=== PATIENT | male | born 1935 | race Two or more races ===

== ENCOUNTER 2020-01-28 22:51 | Inpatient (IN) | payer OTHER ==
[~2020-01-28] VITALS: Ht 177.8 cm; Wt 70.3 kg
--- NOTE | 2020-01-28 22:54 | NUR ---
dr shultz at [facility] side
--- NOTE | 2020-01-28 22:55 | NUR ---
PATIENT CAME TO THE ER BED 2 BIBRA FROM HOME FOR VOMITING AND NAUSEA W/ COFFEE GROUND EMESIS PER DAUGHTER FOR 1x DAY. PATIENT IS AAOX2. BREATHING EVENLY AND UNLABORED ON ROOM AIR AT OXYGEN SATURATION OF 100%. CONNECTED TO THE STUDENT FINANCIAL SERVICES COUNSELOR.
[2020-01-28] MEDS ORDERED: IV NS 0.9% 1,000 ML BAG IV ONE (23:00)
[2020-01-28] MEDS ORDERED: PANTOPRAZOLE 40 MG VIAL IV ONE (23:00)
[2020-01-28] MEDS ORDERED: ONDANSETRON HCL/PF 4 MG/2 ML VIAL IVP ONE (23:00)
[2020-01-28] MEDS ORDERED: ONDANSETRON HCL/PF 4 MG/2 ML VIAL ONE (23:02)
--- NOTE | 2020-01-28 23:10 | NUR ---
BLOOD, COVID SWAB ANTIGEN, CULTURES ARE COLLECTED AND SENT TO THE LAB.
[2020-01-28] MEDS ORDERED: PANTOPRAZOLE 40 MG VIAL ONE (23:15)
[2020-01-28 23:28] LABS: BASOPHILS % (AUTO) 0.1 % (0.0-2.0); EOSINOPHILS % (AUTO) 0.2 % (0.0-6.0); LYMPHOCYTES # (AUTO) 0.6 /CMM (0.8-4.8); LYMPHOCYTES % (AUTO) 7.5 % (20.0-44.0); MEAN CORPUSCULAR HGB CONC 31 g/dl (31.0-36.0); MEAN CORPUSCULAR VOLUME 95 fL (80-96); MONOCYTES # (AUTO) 0.4 /CMM (0.1-1.30); MONOCYTES % (AUTO) 4.8 % (2.0-12.0); NEUTROPHILS # (AUTO) 6.8 /CMM (1.8-8.9); NEUTROPHILS % (AUTO) 87.4 % (43.0-81.0); PLATELET COUNT (AUTO) 214 /CMM (150-450); WHITE BLOOD COUNT (AUTO) 7.7 K/uL (4.3-11.0)
[2020-01-28 23:29] LABS: HEMATOCRIT 11 % (39-51); HEMOGLOBIN 3.3 g/dL (13.5-17.5)
--- NOTE | 2020-01-28 23:29 | NUR ---
PATIENT IS TAKEN TO CT.
--- NOTE | 2020-01-28 23:29 | NUR ---
SPOKE WITH FAMILY MEMBER, DAUGHTER REGARDING PATIENT. FAMILY MEMBER GIVES CONSENT FOR BLOOD TRANSFUSION.
[2020-01-28 23:37] LABS: SERUM AMMONIA 25 umol/L (11-32)
[2020-01-28 23:40] LABS: BILIRUBIN,DIRECT 0.2 mg/dL (0.0-0.2); BILIRUBIN,TOTAL 0.4 mg/dL (0.2-1.0); CREATININE 0.9 mg/dL (0.6-1.3); TOTAL PROTEIN, SERUM 2.5 g/dL (6.4-8.2)
[2020-01-28 23:49] LABS: POTASSIUM 2.6 mmol/L (3.5-5.1)
[2020-01-28 23:50] LABS: ALBUMIN 0.7 g/dL (3.4-5.0)
[2020-01-28 23:56] LABS: ALCOHOL, BLOOD < 3 mg/dL (0-0)
[2020-01-29] MEDS ORDERED: POTASSIUM CHLORIDE 10 MEQ/50 ML PREMIXED IVPB FOR PERIPHERAL LINE IV ONE
[2020-01-29] MEDS ORDERED: POTASSIUM CL. PREMIX PERIPHER. 50 ML ONE ×4 (00:07→04:35)
[2020-01-29 00:09] LABS: BILIRUBIN,URINE Negative (NEGATIVE); COLOR,URINE YELLOW (YELLOW); LEUKOCYTE ESTERASE ,URINE Negative (NEGATIVE); NITRITE, URINE Negative (NEGATIVE); PROTEIN,URINE Negative (NEGATIVE); UGLUCOSE Negative (NEGATIVE); UROBILINOGEN,URINE 0.2 EU/dL (0.2)
--- NOTE | 2020-01-29 00:18 | NUR ---
KAPLAN PAGED PER DR OTTO.
[2020-01-29 00:20] LABS: ACETAMINOPHEN 16 ug/ml (10-30)
[2020-01-29 00:29] LABS: BACTERIA,URINE None seen /HPF (None Seen); RBC,URINE 0-2 /HPF (0-2); SQUAMOUS EPITHELIAL CELL,UR Rare /HPF (None Seen); URINE AMORPHOUS URATE Few /HPF (None Seen); WBC,URINE 0-2 /HPF (0-3)
--- NOTE | 2020-01-29 00:33 | NUR ---
SARAHI BECK, HOSPITALIST AT BED SIDE
[2020-01-29 00:34] LABS: LYMPHOCYTES % (MANUAL) 10 % (16-48); MONOCYTES % (MANUAL) 5 % (0-11.0); NEUTROPHILS % (MANUAL) 85 (42-76)
--- NOTE | 2020-01-29 00:35 | NUR ---
DR STINSON PAGED PER DR OTTO.
[2020-01-29] MEDS ORDERED: ALBUMIN 25% 12.5 GM/50 ML BOTTLE IV ONE (01:00)
[2020-01-29] MEDS ORDERED: NOREPINEPHRINE 8 MG in IV NS 0.9% 250 ML IV PRN (01:00)
[2020-01-29] MEDS ORDERED: PANTOPRAZOLE 40 MG VIAL IV SCH ×2 (01:00→09:00)
[2020-01-29] MEDS ORDERED: PANTOPRAZOLE 40 MG VIAL ONE ×3 (01:09→18:04)
[2020-01-29] MEDS ORDERED: ALBUMIN 25% 50 ML IV ONE ×2 (01:09→01:11)
[2020-01-29 01:15] VITALS: BP 82/34
[2020-01-29] MEDS: IV NS 0.9% 1,000 ML IV PRN (01:16)
--- NOTE | 2020-01-29 01:16 | NUR ---
STARTED BLOOD TRANSFUSION.
--- NOTE | 2020-01-29 03:06 | NUR ---
1ST BLOOD TRANSFUSION FINISHED. PATIENT TOLERATED WELL. NO BLOOD TRANSFUSION REACTION NOTED.
--- NOTE | 2020-01-29 03:09 | NUR ---
CALLED LAB FOR CLS TO PROVIDE 2ND PRBC FOR PATIENT. CLS IS CURRENTLY ON BREAK. WILL CALL ME BACK PER LAB STAFF.
--- NOTE | 2020-01-29 03:45 | NUR ---
PER CLS GIVE 15 MORE MINUTES AND THE BLOOD WILL BE READY. WILL CALL BACK.
--- NOTE | 2020-01-29 06:28 | NUR ---
2ND BLOOD TRANSFUSION FINISHED. PATIENT TOLERATED WELL. 124/75 BP 90 HR. NO BLOOD TRANSFUSION REACTION NOTED.
[2020-01-29 07:17] LABS: BASOPHILS % (AUTO) 0.1 % (0.0-2.0); EOSINOPHILS % (AUTO) 0.1 % (0.0-6.0); LYMPHOCYTES # (AUTO) 0.9 /CMM (0.8-4.8); LYMPHOCYTES % (AUTO) 10.4 % (20.0-44.0); MEAN CORPUSCULAR HGB CONC 32 g/dl (31.0-36.0); MEAN CORPUSCULAR VOLUME 95 fL (80-96); MONOCYTES # (AUTO) 0.4 /CMM (0.1-1.30); MONOCYTES % (AUTO) 4.6 % (2.0-12.0); NEUTROPHILS % (AUTO) 84.8 % (43.0-81.0); PLATELET COUNT (AUTO) 130 /CMM (150-450); WHITE BLOOD COUNT (AUTO) 8.2 K/uL (4.3-11.0)
[2020-01-29 07:20] LABS: RED BLOOD CELL COUNT(AUTO) 1.36 MIL/uL (4.5-6.0)
[2020-01-29 07:22] LABS: HEMATOCRIT 13 % (39-51); HEMOGLOBIN 4.1 g/dL (13.5-17.5)
[2020-01-29 07:30] LABS: ALANINE AMINOTRANSFERASE 16 U/L (12-78); ALKALINE PHOSPHATASE 29 U/L (46-116); ASPARTATE AMINOTRANSFERASE 17 U/L (15-37); BILIRUBIN,TOTAL 0.4 mg/dL (0.2-1.0); CHLORIDE 124 mmol/L (98-107); CREATININE 0.7 mg/dL (0.6-1.3); GLUCOSE 109 mg/dL (74-106); SODIUM SERUM 150 mmol/L (136-145); TOTAL PROTEIN, SERUM 2.1 g/dL (6.4-8.2); UREA NITROGEN, BLOOD 43 mg/dL (7-18)
[2020-01-29 07:31] LABS: IRON, SERUM 43 ug/dl (50-175); TOTAL IRON BINDING CAPACITY 82 ug/dl (250-450)
[2020-01-29 07:43] LABS: CALCIUM, SERUM 3.8 mg/dL (8.5-10.1); CARBON DIOXIDE 8 mmol/L (21-32); POTASSIUM 2.3 mmol/L (3.5-5.1)
[2020-01-29 07:46] LABS: ALBUMIN 0.8 g/dL (3.4-5.0); MAGNESIUM 0.7 mg/dL (1.8-2.4); PHOSPHORUS 0.8 mg/dL (2.5-4.9)
[2020-01-29 07:50] LABS: FERRITIN 208 ng/mL (8-388); LDL 8 mg/dL (0-99); THYROID STIMULATING HORMONE 1.033 uIU/mL (0.358-3.74); TRIGLYCERIDES 40 mg/dL (30-150)
[2020-01-29 08:03] LABS: CHOLESTEROL 18 mg/dL (<200)
--- NOTE | 2020-01-29 08:03 | NUR ---
PT IN BED SLEEPING.
[2020-01-29 08:04] LABS: HDL CHOLESTEROL < 10 mg/dL (40-60)
[2020-01-29] MEDS ORDERED: ATOR80TA PO (08:36)
[2020-01-29] MEDS ORDERED: AMIO200T5 PO (08:36)
[2020-01-29] MEDS ORDERED: TICA90TA PO (08:36)
[2020-01-29] MEDS ORDERED: METO25TA20 PO (08:36)
[2020-01-29] MEDS: PANTOPRAZOLE 40 MG VIAL IV SCH ×2 (09:35→18:00)
[2020-01-29] MEDS: Magnesium 1GM/D5W 100ML PREMIX 100 ML IV SCH ×4 (10:00→13:07)
[2020-01-29] MEDS: POTASSIUM PHOSPHATE MM 7.5 MMOL in IV NS 0.9% 100 ML IV SCH ×2 (10:00→14:07)
[2020-01-29] MEDS: Calcium Gluconate 1GM/10ML 9.3 MEQ in IV D5W 250 ML IV SCH ×2 (10:00→18:19)
--- NOTE | 2020-01-29 11:40 | NUR ---
3RD BAG OF PRBC STARTED PER MD STANDING ORDER HGB: 4.1.
--- NOTE | 2020-01-29 13:15 | NUR ---
3RD BAG PRBC COMPLETED. NO S/S/ OF ASE NOTED.
--- NOTE | 2020-01-29 13:36 | NUR ---
4TH BAG OF PRBC STARTED PER MD ORDERED. HGB= 4.1 VERIFIED BY SYEDA RAY
--- NOTE | 2020-01-29 14:31 | NUR ---
CARMINA LLANES NP AT BEDSIDE
[2020-01-29] MEDS ORDERED: PHYTONADIONE INJ 10 MG in IV D5W 50 ML SQ ONE (15:30)
--- NOTE | 2020-01-29 15:35 | NUR ---
4TH BAG PRBC COMPLETED. NO S/S OF ASE NOTED.
--- NOTE | 2020-01-29 15:40 | NUR ---
PHLEB AT BEDSIDE FOR BLOOD DRAW
[2020-01-29] MEDS ORDERED: PHYTONADIONE INJ 10 MG/1 ML AMPUL IV ONE (16:00)
--- NOTE | 2020-01-29 16:04 | NUR ---
SHARI PT'S DAUGTHER UPDATED REGARDING FATHER
[2020-01-29 16:11] LABS: BASOPHILS % (AUTO) 0.2 % (0.0-2.0); EOSINOPHILS % (AUTO) 0.5 % (0.0-6.0); HEMATOCRIT 26 % (39-51); HEMOGLOBIN 8.5 g/dL (13.5-17.5); LYMPHOCYTES # (AUTO) 1.1 /CMM (0.8-4.8); LYMPHOCYTES % (AUTO) 8.2 % (20.0-44.0); MEAN CORPUSCULAR HGB CONC 33 g/dl (31.0-36.0); MEAN CORPUSCULAR VOLUME 91 fL (80-96); MONOCYTES # (AUTO) 0.6 /CMM (0.1-1.30); MONOCYTES % (AUTO) 4.7 % (2.0-12.0); NEUTROPHILS # (AUTO) 11.9 /CMM (1.8-8.9); NEUTROPHILS % (AUTO) 86.4 % (43.0-81.0); PLATELET COUNT (AUTO) 181 /CMM (150-450); RED BLOOD CELL COUNT(AUTO) 2.86 MIL/uL (4.5-6.0); WHITE BLOOD COUNT (AUTO) 13.8 K/uL (4.3-11.0)
[2020-01-29 16:34] LABS: BILIRUBIN,TOTAL 0.8 mg/dL (0.2-1.0); MAGNESIUM 2.4 mg/dL (1.8-2.4)
[2020-01-29 17:16] LABS: CALCIUM, SERUM 7.5 mg/dL (8.5-10.1); CARBON DIOXIDE 18 mmol/L (21-32); CHLORIDE 106 mmol/L (98-107); CREATININE 1.7 mg/dL (0.6-1.3); GLUCOSE 298 mg/dL (74-106); POTASSIUM 4.8 mmol/L (3.5-5.1); SODIUM SERUM 135 mmol/L (136-145)
[2020-01-29 17:18] LABS: UREA NITROGEN, BLOOD 81 mg/dL (7-18)
[2020-01-29 17:21] LABS: PHOSPHORUS 2.5 mg/dL (2.5-4.9)
[2020-01-29 17:22] LABS: ALANINE AMINOTRANSFERASE 45 U/L (12-78); ALBUMIN 1.8 g/dL (3.4-5.0); ALKALINE PHOSPHATASE 68 U/L (46-116); ASPARTATE AMINOTRANSFERASE 49 U/L (15-37); TOTAL PROTEIN, SERUM 4.8 g/dL (6.4-8.2)
[2020-01-29] MEDS ORDERED: ZOSYN IVPB 3.375 G in IV D5W 50ml IV ONE (18:30)
[2020-01-29] MEDS ORDERED: PIPERACILLIN /TAZOBACTAM 3.375 G in IV D5W 100 ML IV ONE (18:30)
--- NOTE | 2020-01-29 19:30 | NUR ---
REC'D REPORT FROM AM SHIFT. PT HERE FOR GI BLEED. 4U PRBC INFUSED, 2 PLASMA PENDING. PT MORE AWAKE/ALERT, DENIES ANY PAIN/DISCOMFORT, DENIES SOB/CP, PT ON MONITOR. NO ACUTE EVENTS NOTED. PT VSS. WCTM
[2020-01-29 22:08] LABS: CALCIUM, SERUM 8.7 mg/dL (8.5-10.1); CARBON DIOXIDE 17 mmol/L (21-32); CHLORIDE 109 mmol/L (98-107); CREATININE 1.8 mg/dL (0.6-1.3); GLUCOSE 340 mg/dL (74-106); SODIUM SERUM 138 mmol/L (136-145); UREA NITROGEN, BLOOD 82 mg/dL (7-18)
[2020-01-29 22:25] LABS: BASOPHILS % (AUTO) 0.2 % (0.0-2.0); EOSINOPHILS % (AUTO) 0.5 % (0.0-6.0); HEMATOCRIT 28 % (39-51); HEMOGLOBIN 9.1 g/dL (13.5-17.5); LYMPHOCYTES # (AUTO) 1.1 /CMM (0.8-4.8); LYMPHOCYTES % (AUTO) 7.8 % (20.0-44.0); MEAN CORPUSCULAR HGB CONC 33 g/dl (31.0-36.0); MEAN CORPUSCULAR VOLUME 91 fL (80-96); MONOCYTES # (AUTO) 0.7 /CMM (0.1-1.30); MONOCYTES % (AUTO) 4.6 % (2.0-12.0); NEUTROPHILS # (AUTO) 12.4 /CMM (1.8-8.9); NEUTROPHILS % (AUTO) 86.9 % (43.0-81.0); PLATELET COUNT (AUTO) 221 /CMM (150-450); RED BLOOD CELL COUNT(AUTO) 3.07 MIL/uL (4.5-6.0); WHITE BLOOD COUNT (AUTO) 14.3 K/uL (4.3-11.0)
[2020-01-29] MEDS ORDERED: DEXTROSE 50%-WATER 50 ML DISP.SYRIN IV PRN (23:00)
[2020-01-30] VITALS (9 sets, daily range): BP systolic 98–121; BP diastolic 56–72
--- NOTE | 2020-01-30 | NUR ---
STARTED 1UNIT PLASMA @2300, VERIFIED WITH 2ND RN. Q15M VS RECORDED. NO ADVERSE REACTION NOTED. CONT TO MONITOR
[2020-01-30] MEDS: PIPERACILLIN /TAZOBACTAM 3.375 G in IV D5W 100 ML IV SCH ×3 (01:30→18:39)
[2020-01-30] MEDS: Calcium Gluconate 1GM/10ML 9.3 MEQ in IV D5W 250 ML IV SCH (02:54)
--- NOTE | 2020-01-30 03:00 | NUR ---
PT NOTED WITH BLACK STOOLS X1, REPORT TO ON-CALL HOSPITALIST, PT WITH SCHED EGD IN AM. PT VSS, NOT IN ANY DISTRESS.
[2020-01-30] MEDS: BLOOD SUGAR DIAGNOSTIC 1 EACH STRIP IN SCH ×5 (03:37→23:17)
--- NOTE | 2020-01-30 05:30 | NUR ---
2ND UNIT PLASMA STARTED, VERIFIED WITH 2ND RN. NO ADVERSE REACTION NOTED.
[2020-01-30 05:34] LABS: BASOPHILS % (AUTO) 0.2 % (0.0-2.0); EOSINOPHILS % (AUTO) 0.8 % (0.0-6.0); HEMATOCRIT 26 % (39-51); HEMOGLOBIN 8.7 g/dL (13.5-17.5); LYMPHOCYTES # (AUTO) 0.9 /CMM (0.8-4.8); LYMPHOCYTES % (AUTO) 6.4 % (20.0-44.0); MEAN CORPUSCULAR HGB CONC 34 g/dl (31.0-36.0); MEAN CORPUSCULAR VOLUME 90 fL (80-96); MONOCYTES # (AUTO) 0.6 /CMM (0.1-1.30); MONOCYTES % (AUTO) 4.5 % (2.0-12.0); NEUTROPHILS # (AUTO) 12.3 /CMM (1.8-8.9); NEUTROPHILS % (AUTO) 88.1 % (43.0-81.0); PLATELET COUNT (AUTO) 221 /CMM (150-450); RED BLOOD CELL COUNT(AUTO) 2.84 MIL/uL (4.5-6.0); WHITE BLOOD COUNT (AUTO) 13.9 K/uL (4.3-11.0)
[2020-01-30 06:16] LABS: ALANINE AMINOTRANSFERASE 51 U/L (12-78); ALBUMIN 2.1 g/dL (3.4-5.0); ALKALINE PHOSPHATASE 79 U/L (46-116); ASPARTATE AMINOTRANSFERASE 52 U/L (15-37); BILIRUBIN,TOTAL 0.7 mg/dL (0.2-1.0); CARBON DIOXIDE 17 mmol/L (21-32); CHLORIDE 108 mmol/L (98-107); CREATININE 1.7 mg/dL (0.6-1.3); MAGNESIUM 2.3 mg/dL (1.8-2.4); PHOSPHORUS 2.9 mg/dL (2.5-4.9); POTASSIUM 5.2 mmol/L (3.5-5.1); SODIUM SERUM 138 mmol/L (136-145); TOTAL PROTEIN, SERUM 5.2 g/dL (6.4-8.2); UREA NITROGEN, BLOOD 74 mg/dL (7-18)
[2020-01-30 06:17] LABS: GLUCOSE 354 mg/dL (74-106)
[2020-01-30] MEDS ORDERED: PANTOPRAZOLE 40 MG VIAL ONE (08:28)
--- NOTE | 2020-01-30 08:30 | NUR ---
kept npo. pt made aware of importance of being npo prior to egd
[2020-01-30] MEDS: PANTOPRAZOLE 40 MG VIAL IV SCH ×2 (08:31→22:05)
--- NOTE | 2020-01-30 09:04 | NUR ---
LAB CALLED WITH CRITICAL TROPONIN=1.03. PAGED EPIC
--- NOTE | 2020-01-30 10:47 | NUR ---
consent obtained for egd from daughter [place]. verified with [facility] sams
[2020-01-30] MEDS: IV NS 0.9% 1,000 ML IV PRN ×2 (10:57→17:44)
--- NOTE | 2020-01-30 11:44 | NUR ---
bs checked 305. pt kept npo for egd. bs sliding scale insulin held
[2020-01-30] MEDS ORDERED: ANESTHESIA TRAY IN PYXIS 1 EA TRAY MC ONE (11:48)
--- NOTE | 2020-01-30 12:00 | NUR ---
pt picked up by surgery for egd. rosalba rn by bedside
[2020-01-30] MEDS ORDERED: EPINEPHRINE (1:10,000) SYRINGE 1 MG/10 ML DISP.SYRIN ONE (13:06)
[2020-01-30] MEDS ORDERED: SUCCINYLCHOLINE CHLORIDE 20 MG/ML VIAL ONE (13:25)
[2020-01-30] MEDS ORDERED: ESMOLOL INJ 100 MG/10 ML VIAL IV ONE (14:05)
[2020-01-30] MEDS ORDERED: AMIODARONE 150 MG/3 ML VIAL IV ONE (14:22)
--- NOTE | 2020-01-30 16:54 | NUR ---
PROJECT ENGINEERING MANAGER ADMITTING NOTES PT ADMITTED TO UNIT AT 1555 VIA RLONGFORD ACCOMPANIED BY O.R. NURSE SAMEERA. PT S/P EGD, INJECTION 0F EPINEPHRINE AND ELECTROCOAGULATION. PT IS A/O X2-3. SYRIAN SPEAKING, DENIES PAIN OR ANY DISCOMFORTS AT THIS TIME. PT ORIENTED TO STAFF AND ROOM. PT ON 02 VIA N/C AT 2LPM, TOLERATING WELL WITH NO SOB NOTED. VS/ TAKEN AND RECORDED. PT PLACED ON TELEMONITORING WITH CURRENT READING OF NSR WITH HR ON THE 90'S, NO C/O CARDIAC DISTRESS VOICED. PT WITH PIV'S ON RAC G# 18 AND RIGHT WRIST G#20, BOTH INTACT AND PATENT. PER O.R RN SAMEERA, DR CAMARENA LEFT MESSAGE TO DR GUADARRAMA REGARDING PT'S ELEVATED TROPONIN LEVEL. PHOTOS OF SKIN ISSUES TAKEN AND FILED IN PT'S CHART. SAFETY MEASURES IMPLEMENTED: BED PLACED IN LOWEST LOCKED POSITION WITH SR UP X2. BED ALARM ON AND CALL LIGHT PLACED WITHIN EASY REACH OF PT. WILL CONTINUE TO MONITOR PT ACCORDINGLY.
[2020-01-30] MEDS: INSULIN REGULAR, HUMAN 100 UNIT/ML 3 ML VIAL SQ PRN (17:57)
--- NOTE | 2020-01-30 19:03 | NUR ---
PROFESSIONAL SKATEBOARDER CLOSING NOTES PT IN BED AWAKE AND RESTING AT MODERTAE HIGH BACKREST POSITION. A/O X4. GUATEMALAN SPEAKING. ON 02 VIA N/C AT 1LPM, TOLERATING WELL WITH NO SOB NOTED. EXTERNAL MONITOR SHOWS NSR WITH HR ON THE 80'S, NO C/O CARDIAC DISTRESS VOICED SINCE ADMISSION.. ALL PIV'S INTACT, PATENT AND FLUSHES WELL, IVF INFUSING ORDERED. ALL NEEDS AND CARE ATTENDED WELL. SAFETY MEASURES IN PLACE: BED IN LOWEST LOCKED POSITION WITH SR UP X2, BED ALARM ON AND CALL LIGHT W/IN EASY REACH OF PT. WILL ENDORSE TO PUMP INSTALLATION AND SERVICER NURSE FOR JENNIFER.
[2020-01-31] VITALS (12 sets, daily range): BP systolic 95–126; BP diastolic 50–107
[2020-01-31] MEDS: PIPERACILLIN /TAZOBACTAM 3.375 G in IV D5W 100 ML IV SCH ×4 (00:03→19:11)
[2020-01-31] MEDS: BLOOD SUGAR DIAGNOSTIC 1 EACH STRIP IN SCH ×2 (05:44→11:34)
[2020-01-31] MEDS: INSULIN REGULAR, HUMAN 100 UNIT/ML 3 ML VIAL SQ PRN ×3 (05:52→18:28)
[2020-01-31 06:57] LABS: BASOPHILS % (AUTO) 0.1 % (0.0-2.0); EOSINOPHILS % (AUTO) 1.1 % (0.0-6.0); HEMATOCRIT 22 % (39-51); HEMOGLOBIN 7.4 g/dL (13.5-17.5); LYMPHOCYTES # (AUTO) 1.1 /CMM (0.8-4.8); LYMPHOCYTES % (AUTO) 8.8 % (20.0-44.0); MEAN CORPUSCULAR HGB CONC 33 g/dl (31.0-36.0); MEAN CORPUSCULAR VOLUME 93 fL (80-96); MONOCYTES # (AUTO) 0.6 /CMM (0.1-1.30); MONOCYTES % (AUTO) 4.5 % (2.0-12.0); NEUTROPHILS % (AUTO) 85.5 % (43.0-81.0); PLATELET COUNT (AUTO) 251 /CMM (150-450); RED BLOOD CELL COUNT(AUTO) 2.42 MIL/uL (4.5-6.0); WHITE BLOOD COUNT (AUTO) 12.8 K/uL (4.3-11.0)
--- NOTE | 2020-01-31 06:59 | NUR ---
RN CLOSING NOTES Pt asleep, now new complaints made. No s/sx of bleeding noted. All nursing needs attended, due meds given as ordered. On fall and aspiration precautions. Endorsed.
[2020-01-31 07:38] LABS: CALCIUM, SERUM 8.2 mg/dL (8.5-10.1); CARBON DIOXIDE 18 mmol/L (21-32); CHLORIDE 112 mmol/L (98-107); CREATININE 1.8 mg/dL (0.6-1.3); GLUCOSE 294 mg/dL (74-106); MAGNESIUM 2.1 mg/dL (1.8-2.4); PHOSPHORUS 3.1 mg/dL (2.5-4.9); SODIUM SERUM 143 mmol/L (136-145); UREA NITROGEN, BLOOD 51 mg/dL (7-18)
[2020-01-31] MEDS: IV NS 0.9% 1,000 ML IV PRN ×2 (07:47→23:29)
--- NOTE | 2020-01-31 08:15 | NUR ---
CATALYST UNIT OPERATOR NOTES RECEIVED PATIENT IN BED, ASLEEP. PATIENT ON 2 LPM VIA NASAL CANNULA; BREATHING EVEN AND UNLABORED; NO SOB PRESENT. NO COMPLAINS OF PAIN. RAC G # 18 PRESENT AND INTACT. SAFETY PRECAUTIONS IN PLACE; BED IN LOW POSITION AND LOCKED, RAILS UP X2, CALL LIGHT WITHIN REACH. WILL CONTINUE TO MONITOR PATIENT.
--- NOTE | 2020-01-31 08:20 | NUR ---
MANAGER DIGITAL OPENING NOTES RECEIVED PATIENT IN BED, ASLEEP. PATIENT ON O2 BUT KEEPS HIS NASAL CANULA REMOVED AND IS FINE ON ROOM AIR; NO SOB PRESENT. NO S/S OF PAIN SUCH FACIAL GRIMACING, GUARDING OR MOANING. SAFETY PRECAUTIONS IN PLACE; BED IN LOW POSITION AND LOCKED, RAILS UP X2, CALL LIGHT WITHIN REACH. WILL CONTINUE TO MONITOR PATIENT.
[2020-01-31] MEDS: PANTOPRAZOLE 40 MG VIAL IV SCH ×2 (09:05→21:19)
[2020-01-31] MEDS ORDERED: DEXTROSE 50%-WATER 50 ML DISP.SYRIN IV PRN (12:30)
--- NOTE | 2020-01-31 15:55 | NUR ---
PLUGGER MAN NOTES PATIENT STARTED ON BLOOD TRANSFUSION AT 1513 PRE TRANSFUSION VS: BP 115/62 HR 89 O2 100 T: 98.4 RR18 WILL CONTINUE TO MONITOR
--- NOTE | 2020-01-31 15:56 | NUR ---
CD MANUFACTURING SUPERVISOR NOTES AFTER 15 MIN BP: 119/57 HR 93 TEMP 98.4 O2 100 RR 18 WILL CONTINUE TO MONITOR
[2020-01-31] MEDS: BLOOD SUGAR DIAGNOSTIC 1 EACH STRIP VI SCH ×2 (17:39→22:12)
--- NOTE | 2020-01-31 18:59 | NUR ---
CYTOGENETIC TECHNICIAN NOTES TRANSFUSION ENDED. PATIENT TOLERATED WELL. VITAL SIGNS WITHIN NORMAL LIMITS. BP: 113/59 HR 95 RR 20 TEMP 98.1 O2 94%
--- NOTE | 2020-01-31 19:03 | NUR ---
MS RN CLOSING NOTES PATIENT REMAINS IN BED, AWAKE, A/O X2-3. PATIENT ON OXYGEN THERAPY BUT MAINLY ON ROOM AIR THROUGHOUT THE DAY; BREATHING EVEN AND UNLABORED. NO PAIN COMPLAINT THROUGHOUT SHIFT. WALDEMAR MIDLINE NEWLY INSERTED. 1 UNIT PRBC TRANSFUSED TODAY; PATIENT TOLERATED WELL. ALL NEEDS ATTENDED THROUGHOUT THE DAY. SAFETY PRECAUTIONS IN PLACE; BED IN LOW POSITION AND LOCKED, RAILS UP X2, CALL LIGHT WITHIN REACH. WILL ENDORSE TO GEOGRAPHIC INFORMATION SCIENTIST NURSE.
--- NOTE | 2020-01-31 20:17 | NUR ---
MS RN OPENING NOTE: RECEIVED PT FROM DAY SHIFT NURSE. SLEEPING IN BED. NO ACUTE DISTRESS OR PAIN NOTED. BREATHING EVEN AND UNLABORED. NO SOB NOTED. WALDEMAR MIDLINE IN PLACE AND INTACT. BED IN LOW AND LOCKED POSITION. WILL CONTINUE TO MONITOR.
[2020-01-31 20:49] LABS: BASOPHILS % (AUTO) 0.2 % (0.0-2.0); EOSINOPHILS % (AUTO) 1.3 % (0.0-6.0); HEMATOCRIT 24 % (39-51); HEMOGLOBIN 7.8 g/dL (13.5-17.5); LYMPHOCYTES # (AUTO) 0.9 /CMM (0.8-4.8); LYMPHOCYTES % (AUTO) 7.9 % (20.0-44.0); MEAN CORPUSCULAR HGB CONC 32 g/dl (31.0-36.0); MEAN CORPUSCULAR VOLUME 92 fL (80-96); MONOCYTES # (AUTO) 0.6 /CMM (0.1-1.30); MONOCYTES % (AUTO) 5.3 % (2.0-12.0); NEUTROPHILS # (AUTO) 10.2 /CMM (1.8-8.9); NEUTROPHILS % (AUTO) 85.3 % (43.0-81.0); PLATELET COUNT (AUTO) 257 /CMM (150-450); RED BLOOD CELL COUNT(AUTO) 2.63 MIL/uL (4.5-6.0); WHITE BLOOD COUNT (AUTO) 11.9 K/uL (4.3-11.0)
[2020-01-31 21:43] LABS: EOSINOPHILS % (MANUAL) 1 % (0-4); LYMPHOCYTES % (MANUAL) 11 % (16-48); MONOCYTES % (MANUAL) 2 % (0-11.0); NEUTROPHILS % (MANUAL) 86 (42-76)
[2020-01-31] MEDS: *INSULIN REGULAR(HUMULIN R)HUM 100 UNIT/ML VIAL SQ PRN (22:21)
--- NOTE | 2020-01-31 23:54 | NUR ---
RN NOTES/CHARGE PT. IS COMPLAINING OF KNEE PAIN-, GOT AN ORDER FROM SARAHI NOVAKDIRECTOR OF TRAINING OF NORCO 5/325 MG PO PRN, ORDER NOTED AND CARRIED OUT
--- NOTE | 2020-01-31 23:59 | NUR ---
MS RN NOTE: PT C/O OF 8 KNEE PAIN. SARAHI BECK ORDERED NORCO 5-325. NOTED AND CARRIED OUT
[2020-02-01 00:14] VITALS: BP 110/69
[2020-02-01] MEDS: HYDROCODONE/APAP 5/325MG TABLET PO PRN ×2 (00:27→20:31)
[2020-02-01] MEDS: PIPERACILLIN /TAZOBACTAM 3.375 G in IV D5W 100 ML IV SCH ×3 (01:01→16:22)
[2020-02-01 04:14] VITALS: BP 114/72
[2020-02-01] MEDS: INSULIN REGULAR, HUMAN 100 UNIT/ML 3 ML VIAL SQ PRN ×3 (06:45→18:05)
[2020-02-01] MEDS: BLOOD SUGAR DIAGNOSTIC 1 EACH STRIP VI SCH ×4 (06:57→22:11)
--- NOTE | 2020-02-01 07:15 | NUR ---
MS RN CLOSING NOTE: SLEEPING IN BED. NO ACUTE DISTRESS OR PAIN NOTED. BREATHING EVEN AND UNLABORED. NO SOB NOTED. WALDEMAR MIDLINE IN PLACE AND INTACT. ALL MEDS GIVEN ORDERED AND MEREDITH. WELL. KEPT CLEAN AND DRY. BED IN LOW AND LOCKED POSITION. WILL ENDORSE TO DAY SHIFTY NURSE.
--- NOTE | 2020-02-01 07:35 | NUR ---
RN OPEN NOTES PATIENT IS A/O X 2-3 WITH NO SIGNS OF DISTRESS ON 2L OF NASAL CANNULA SPO2 98%. R UA MIDLINE. TELE MONITOR NSR. NO COMPLAIN OF PAIN AT THIS TIME. SAFETY MEASURES ARE APPLIED, BED IS IN LOW POSITION SIDE RAILS UP X 2. CALL LIGHT WITHIN REACH. WILL CONTINUE TO MONITOR.
[2020-02-01 08:00] VITALS: BP 127/70
[2020-02-01 08:18] LABS: BASOPHILS % (AUTO) 0.2 % (0.0-2.0); EOSINOPHILS % (AUTO) 1.8 % (0.0-6.0); HEMATOCRIT 25 % (39-51); HEMOGLOBIN 8.3 g/dL (13.5-17.5); LYMPHOCYTES % (AUTO) 8.6 % (20.0-44.0); MEAN CORPUSCULAR HGB CONC 33 g/dl (31.0-36.0); MEAN CORPUSCULAR VOLUME 92 fL (80-96); MONOCYTES # (AUTO) 0.6 /CMM (0.1-1.30); MONOCYTES % (AUTO) 5.1 % (2.0-12.0); NEUTROPHILS # (AUTO) 9.6 /CMM (1.8-8.9); NEUTROPHILS % (AUTO) 84.3 % (43.0-81.0); PLATELET COUNT (AUTO) 259 /CMM (150-450); RED BLOOD CELL COUNT(AUTO) 2.76 MIL/uL (4.5-6.0); WHITE BLOOD COUNT (AUTO) 11.3 K/uL (4.3-11.0)
[2020-02-01] MEDS: PANTOPRAZOLE 40 MG VIAL IV SCH ×2 (08:57→20:30)
[2020-02-01 09:16] LABS: CALCIUM, SERUM 8.2 mg/dL (8.5-10.1); CARBON DIOXIDE 23 mmol/L (21-32); CHLORIDE 114 mmol/L (98-107); CREATININE 1.5 mg/dL (0.6-1.3); GLUCOSE 188 mg/dL (74-106); PHOSPHORUS 3.2 mg/dL (2.5-4.9); POTASSIUM 3.8 mmol/L (3.5-5.1); SODIUM SERUM 145 mmol/L (136-145); UREA NITROGEN, BLOOD 21 mg/dL (7-18)
[2020-02-01 18:44] LABS: BILIRUBIN,URINE NEGATIVE (NEGATIVE); COLOR,URINE YELLOW (YELLOW); LEUKOCYTE ESTERASE ,URINE NEGATIVE (NEGATIVE); NITRITE, URINE NEGATIVE (NEGATIVE); PH,URINE 5.5 (5.0-8.0); PROTEIN,URINE NEGATIVE (NEGATIVE); UGLUCOSE 250 MG/DL mg/dL (NEGATIVE); UROBILINOGEN,URINE 0.2 EU/dL (0.2)
[2020-02-01 19:09] LABS: CREATININE, URINE 50.1 MG/DL (30.0-125.0); URINE TOTAL PROTEIN 36.1 mg/dL (0-11.9)
--- NOTE | 2020-02-01 19:31 | NUR ---
RN CLOSING NOTES PATIENT IS A/O X 3-4 WITH NO SIGNS OF DISTRESS IN ROOM AIR SPO2 98%. R UA MIDLINE. TELE MONITOR. NO COMPLAIN OF PAIN AT THIS TIME. PATIENT KEPT CLEAN AND DRY. ALL NEEDS, CARE, TREATMENT,AND MEDICATIONS WERE ADMINISTERED ANTICIPATED PER ORDER. SAFETY MEASURES ARE APPLIED, BED IS IN LOW POSITION SIDE RAILS UP X 2. CALL LIGHT WITHIN REACH WILL ENDORSE TO THE PRINCIPAL ADMINISTRATIVE CLERK NURSE.
--- NOTE | 2020-02-01 19:45 | NUR ---
AC/DC REWINDER OPENING NOTES RECEIVED PATIENT IN BED ALERT AND ORIENTED X 3. VERBALLY RESPONSIVE AND ABLE TO FOLLOW DIRECTIONS. BREATHING REGULAR AND UNLABORED ON ROOM AIR. RIGHT UPPER ARM MIDLINE INTACT AND PATENT, FLUSHING WELL. MAINTAINED ON CARDIAC MONITORING. COMPLAINED OF KNEE PAIN, NON-PHARMACOLOGICAL INTERVENTIONS PROVIDED. BED LOW AND LOCKED ON SEMI FOWLERS POSITION. CALL LIGHT IN REACH. WILL CONTINUE TO MONITOR.
[2020-02-01 20:00] VITALS: BP 106/50
[2020-02-01 20:45] LABS: EOSINOPHIL,URINE None Seen
[2020-02-01] MEDS: *INSULIN REGULAR(HUMULIN R)HUM 100 UNIT/ML VIAL SQ PRN (21:36)
[2020-02-02] MEDS: PIPERACILLIN /TAZOBACTAM 3.375 G in IV D5W 100 ML IV SCH ×3 (00:02→16:44)
[2020-02-02 06:04] LABS: BASOPHILS % (AUTO) 0.2 % (0.0-2.0); EOSINOPHILS % (AUTO) 1.1 % (0.0-6.0); HEMATOCRIT 27 % (39-51); HEMOGLOBIN 8.9 g/dL (13.5-17.5); LYMPHOCYTES # (AUTO) 1.3 /CMM (0.8-4.8); LYMPHOCYTES % (AUTO) 8.4 % (20.0-44.0); MEAN CORPUSCULAR HGB CONC 33 g/dl (31.0-36.0); MEAN CORPUSCULAR VOLUME 92 fL (80-96); MONOCYTES % (AUTO) 6.7 % (2.0-12.0); NEUTROPHILS # (AUTO) 12.8 /CMM (1.8-8.9); NEUTROPHILS % (AUTO) 83.6 % (43.0-81.0); PLATELET COUNT (AUTO) 317 /CMM (150-450); RED BLOOD CELL COUNT(AUTO) 2.95 MIL/uL (4.5-6.0); WHITE BLOOD COUNT (AUTO) 15.3 K/uL (4.3-11.0)
[2020-02-02 06:17] LABS: CALCIUM, SERUM 8.2 mg/dL (8.5-10.1); CARBON DIOXIDE 20 mmol/L (21-32); CHLORIDE 111 mmol/L (98-107); CREATININE 1.5 mg/dL (0.6-1.3); GLUCOSE 186 mg/dL (74-106); MAGNESIUM 1.7 mg/dL (1.8-2.4); PHOSPHORUS 2.9 mg/dL (2.5-4.9); POTASSIUM 3.6 mmol/L (3.5-5.1); SODIUM SERUM 142 mmol/L (136-145); UREA NITROGEN, BLOOD 13 mg/dL (7-18)
[2020-02-02] MEDS: BLOOD SUGAR DIAGNOSTIC 1 EACH STRIP VI SCH ×3 (06:31→16:44)
[2020-02-02] MEDS: INSULIN REGULAR, HUMAN 100 UNIT/ML 3 ML VIAL SQ PRN ×3 (06:32→16:53)
--- NOTE | 2020-02-02 06:40 | NUR ---
MS RN CLOSING NOTES PATIENT IN BED, ALERT AND ORIENTED X 2-3. AFEBRILE WITH NO S/S OF DISTRESS OBSERVED. WILL ENDORSE TO MORNING SHIFT FOR CONTINUITY OF CARE.
--- NOTE | 2020-02-02 07:35 | NUR ---
RN OPENING NOTES RECEIVED PATIENT IN BED ALERT AND ORIENTED X 3, ARGENTINE SPEAKING. ON ROOM AIR WITH BREATHING REGULAR AND UNLABORED. IV ACCESS INTACT AND PATENT. PATIENT DENIES ANY PAIN/DISCOMFORT AT THIS TIME. SKIN WARM AND DRY TO TOUCH. SAFETY PRECAUTIONS IMPLEMENTED WITH BED LOCKED, BED IN THE LOWEST POSITION, IN SEMI FOWLERS POSITION AND CALL LIGHT WITHIN REACH. WILL CONTINUE TO MONITOR.
[2020-02-02 08:00] VITALS: BP 138/84
[2020-02-02] MEDS: PANTOPRAZOLE 40 MG VIAL IV SCH (08:37)
[2020-02-02] MEDS: Magnesium 1GM/D5W 100ML PREMIX 100 ML IV SCH ×2 (10:12→11:16)
[2020-02-02] MEDS: IV NS 0.9% 1,000 ML IV PRN (12:54)
[2020-02-02 16:00] VITALS: BP 129/85
[2020-02-02] MEDS ORDERED: OMEP20TA20 PO (17:09)
[2020-02-02] MEDS ORDERED: ACETAMINOPHEN 325 MG TABLET PO PRN (18:30)
[2020-02-02] MEDS ORDERED: CIPR-262 PO (18:36)
[2020-02-02] MEDS ORDERED: METR500T PO (18:36)
--- NOTE | 2020-02-02 18:50 | NUR ---
RN OPENING NOTES PATIENT IN BED ALERT AND ORIENTED X 3, TAJIK SPEAKING. ON ROOM AIR WITH BREATHING REGULAR AND UNLABORED. IV ACCESS INTACT AND PATENT. PATIENT DENIES ANY PAIN/DISCOMFORT AT THIS TIME. SKIN WARM AND DRY TO TOUCH. ADMINISTERED PRN TYLENOL DUE TO TEMPERATURE OF 99.6 PROVIDED COOLING MEASURES TO PATIENT. MET ALL OF PATIENT'S NEEDS. SAFETY PRECAUTIONS IMPLEMENTED WITH BED LOCKED, BED IN THE LOWEST POSITION, IN SEMI FOWLERS POSITION AND CALL LIGHT WITHIN REACH. WILL ENDORSE PLAN OF CARE TO UPCOMING RN.
--- NOTE | 2020-02-02 19:45 | NUR ---
MS RN NOTES DISCHARGE PATIENT VIA WHEEL CHAIR PICKED-UP BY DAUGHTER SHARI, REMAINED ALERT AND ORIENTED X 3 WITH NO DISTRESS OBSERVED. DC PACKET GIVEN TO DAUGHTER, MEDICATIONS AND FOLLOW-UP CARE DISCUSSED VIA PHONE CALL. IV LINES AND ID BAND REMOVED.
[2020-02-02] MEDS ORDERED: PANTOPRAZOLE 40 MG VIAL IV SCH (21:00)
== END 2020-02-02 19:45 | disposition home or self-care (01) | DRG 377 ==
LOC: ER 22:54 → OBSVTOIN 01-29 00:58 → TRANSITION 01-29 00:58 → TELE 01-30 14:50 → MED 02-01 13:58
PROVIDERS: ADMIT Nurse Practitioner Acute Care; ATTEND Nurse Practitioner Acute Care
PROC: 30233N1 Transfusion of Nonautologous Red Blood Cells into Peripheral Vein, Percutaneous Approach (ICD-10-PCS; 2020-01-28)
PROC: 30233L1 Transfusion of Nonautologous Fresh Plasma into Peripheral Vein, Percutaneous Approach (ICD-10-PCS; 2020-01-29)
PROC: 0W3P8ZZ Control Bleeding in Gastrointestinal Tract, Via Natural or Artificial Opening Endoscopic (ICD-10-PCS; principal; 2020-01-30)
PROC: 05H933Z Insertion of Infusion Device into Right Brachial Vein, Percutaneous Approach (ICD-10-PCS; 2020-02-01)
DX: K25.4 Chronic or unspecified gastric ulcer with hemorrhage (principal); G93.41 Metabolic encephalopathy; N17.0 Acute kidney failure with tubular necrosis; E43 Unspecified severe protein-calorie malnutrition; I22.2 Subsequent non-ST elevation (NSTEMI) myocardial infarction; I21.4 Non-ST elevation (NSTEMI) myocardial infarction; D62 Acute posthemorrhagic anemia; E87.2 Acidosis; E87.0 Hyperosmolality and hypernatremia; D68.9 Coagulation defect, unspecified; N18.9 Chronic kidney disease, unspecified; E83.51 Hypocalcemia; I12.9 Hypertensive chronic kidney disease with stage 1 through stage 4 chronic kidney disease, or unspecified chronic kidney disease; E11.22 Type 2 diabetes mellitus with diabetic chronic kidney disease; Z91.011 Allergy to milk products; E86.1 Hypovolemia; E87.6 Hypokalemia; Z20.828 Contact with and (suspected) exposure to other viral communicable diseases; E88.09 Other disorders of plasma-protein metabolism, not elsewhere classified; I25.10 Atherosclerotic heart disease of native coronary artery without angina pectoris; I25.2 Old myocardial infarction; Z95.5 Presence of coronary angioplasty implant and graft; E83.42 Hypomagnesemia; E86.9 Volume depletion, unspecified
CPT/HCPCS: 36415; 70450-TC; 71045-TC; 76770-TC; 80048-TC; 80053-TC; 80061-TC; 80076-TC; 81001; 82140-TC; 82570-TC; 82728-TC; 82962-TC; 83540-TC; 83605-TC; 83690-TC; 83735-TC; 83970; 84100-TC; 84155-TC; 84300-TC; 84439-TC; 84443-TC; 84484-TC; 85025-TC; 85730-TC; 86850-TC; 87040-TC; 93307-TC; 97112-TC; 97116-TC; 97530-TC; C9113; C9803; G0378; G0480; J0171; J0282; J0330; J0610; J1815; J2405; J2543; J3430; J3475; J3480; J3490; J7030; J7040; J7060; P9016-BL; P9017-BL; P9047